=== PATIENT | male | born 2000 | race Caucasian/White ===

== ENCOUNTER 2021-07-26 19:10 | Inpatient (IN) | payer OTHER ==
[2021-07-26] MEDS ORDERED: NS 1,000 ML IV ONE ×2 (19:35→20:50)
[2021-07-26 20:02] LABS: BASO % 0.5 % (0.0-1.0); EOS # 0.2 10^3/uL (0.0-0.5); EOS % 2.4 % (0.0-3.0); HEMATOCRIT 42.9 % (42.0-52.0); HEMOGLOBIN 14.2 g/dl (13.5-17.5); LYMPH # 1.7 10^3/uL (1.5-5.0); LYMPH % 27.2 % (24.0-44.0); MEAN CORPUSCULAR HEMOGLOBIN 29.6 pg (27.0-33.0); MEAN CORPUSCULAR HGB CONC 33.1 g/dl (32.0-36.5); MEAN CORPUSCULAR VOLUME 89.6 fl (80.0-96.0); MONO # 0.7 10^3/uL (0.0-0.8); MONO % 10.2 % (2.0-8.0); NEUTROPHILS # 3.8 10^3/uL (1.5-8.5); NEUTROPHILS % 59.4 % (36.0-66.0); PLATELET COUNT, AUTOMATED 223 10^3/uL (150-450); RED BLOOD COUNT 4.79 10^6/uL (4.30-6.10); WHITE BLOOD COUNT 6.4 10^3/uL (4.0-10.0)
[2021-07-26 20:14] LABS: AMPHETAMINES LEVEL URINE NEGATIVE (NEGATIVE); BARBITURATES URINE NEGATIVE (NEGATIVE); BENZODIAZEPINES URINE NEGATIVE (NEGATIVE); CANNABINOIDS URINE NEGATIVE (NEGATIVE); COCAINE METABOLITE URINE NEGATIVE (NEGATIVE); METHADONE URINE NEGATIVE (NEGATIVE); OPIATES URINE NEGATIVE (NEGATIVE); PHENCYCLIDINE URINE NEGATIVE (NEGATIVE)
[2021-07-26 20:35] LABS: ALBUMIN 4.1 GM/DL (3.2-5.2); ALT/SGPT 31 U/L (12-78); BILIRUBIN,DIRECT 0.3 MG/DL (0.0-0.2); BILIRUBIN,TOTAL 0.5 MG/DL (0.2-1.0); BLOOD UREA NITROGEN 7 MG/DL (7-18); CALCIUM LEVEL 8.8 MG/DL (8.5-10.1); CARBON DIOXIDE LEVEL 27 MEQ/L (21-32); CHLORIDE LEVEL 108 MEQ/L (98-107); CREATININE FOR GFR 0.93 MG/DL (0.70-1.30); ETHYL ALCOHOL (ETHANOL) 0.004 % (0.000-0.010); GLUCOSE, FASTING 88 MG/DL (70-100); POTASSIUM SERUM 4.1 MEQ/L (3.5-5.1); SALICYLATE LEVEL < 1.7 MG/DL (5.0-30.0); SODIUM LEVEL 142 MEQ/L (136-145)
[2021-07-26 22:04] LABS: ACETAMINOPHEN LEVEL < 2.0 UG/ML (0.0-30.0)
[2021-07-26] MEDS ORDERED: HOME MED LIST COMPLETE! XX SCH (23:05)
[2021-07-27] MEDS ORDERED: traZODone 50 MG TAB PO PRN (03:30)
[2021-07-27] MEDS ORDERED: ACETAMINOPHEN TAB 650MG DOSE (2X325MG) PO PRN (03:30)
[2021-07-27] MEDS ORDERED: MOM 30ML SUSPENSION UDC PO PRN (03:30)
[2021-07-27] MEDS ORDERED: MAALOX 30 ML SUSP *UDC PO PRN (03:30)
[2021-07-27 04:37] LABS: RSV AMPLIFICATION NEGATIVE (NEGATIVE)
[2021-07-27 05:15] VITALS: BP 131/79
[2021-07-27] MEDS ORDERED: SERTRALINE HCL 50 MG TAB PO SCH (09:00)
[2021-07-27] MEDS: DULoxetine 20 MG CAP (CYMBALTA) PO SCH (10:50)
[2021-07-27 16:29] VITALS: BP 135/65
[2021-07-27 18:03] LABS: BLOOD UREA NITROGEN 11 MG/DL (7-18); CALCIUM LEVEL 9.1 MG/DL (8.5-10.1); CARBON DIOXIDE LEVEL 26 MEQ/L (21-32); CHLORIDE LEVEL 105 MEQ/L (98-107); CREATININE FOR GFR 0.89 MG/DL (0.70-1.30); GLUCOSE, FASTING 94 MG/DL (70-100); POTASSIUM SERUM 3.5 MEQ/L (3.5-5.1); SODIUM LEVEL 141 MEQ/L (136-145)
[2021-07-28 06:42] VITALS: BP 125/63
[2021-07-28] MEDS: DULoxetine 20 MG CAP (CYMBALTA) PO SCH (08:27)
[2021-07-28 16:16] VITALS: BP 123/57
[2021-07-29 06:45] VITALS: BP 133/74
[2021-07-29] MEDS: DULoxetine 20 MG CAP (CYMBALTA) PO SCH (08:20)
[2021-07-29 17:08] VITALS: BP 148/75
[2021-07-30 06:13] VITALS: BP 143/70
[2021-07-30] MEDS ORDERED: CYMB1CAP4 PO (08:17)
[2021-07-30] MEDS: DULoxetine 20 MG CAP (CYMBALTA) PO SCH (08:28)
== END 2021-07-30 11:47 | disposition home or self-care (01) | DRG 881 ==
LOC: M ED 19:10 → EDBD 19:10 → M ED INP 07-27 03:28 → M PSY 07-27 05:04
PROVIDERS: ADMIT Family Medicine; ATTEND Psychiatry & Neurology Psychiatry
DX: F32.A Depression, unspecified (principal); M62.82 Rhabdomyolysis; T39.312A Poisoning by propionic acid derivatives, intentional self-harm, initial encounter; L70.9 Acne, unspecified

== ENCOUNTER 2021-08-02 10:18 | Emergency (ER) | payer OTHER ==
[~2021-08-02] VITALS: Ht 182.9 cm; Wt 80.4 kg
[~2021-08-02 10:18] MED LIST: CYMB1CAP4 PO
[2021-08-02 10:19] VITALS: BP 138/89
== END 2021-08-02 12:21 | disposition left against medical advice (07) ==
LOC: M ED 10:18
DX: Z53.29 Procedure and treatment not carried out because of patient's decision for other reasons (principal)

== ENCOUNTER 2021-08-05 07:22 | Inpatient (IN) | payer OTHER ==
[~2021-08-05] VITALS: Ht 182.9 cm; Wt 78.0 kg
[2021-08-05 07:56] LABS: BASO % 0.3 % (0.0-1.0); EOS # 0.2 10^3/uL (0.0-0.5); EOS % 1.5 % (0.0-3.0); HEMATOCRIT 43.6 % (42.0-52.0); HEMOGLOBIN 14.7 g/dl (13.5-17.5); LYMPH # 1.5 10^3/uL (1.5-5.0); LYMPH % 12.3 % (24.0-44.0); MEAN CORPUSCULAR HEMOGLOBIN 29.3 pg (27.0-33.0); MEAN CORPUSCULAR HGB CONC 33.7 g/dl (32.0-36.5); MONO % 8.4 % (2.0-8.0); NEUTROPHILS # 9.4 10^3/uL (1.5-8.5); NEUTROPHILS % 77.2 % (36.0-66.0); PLATELET COUNT, AUTOMATED 232 10^3/uL (150-450); RED BLOOD COUNT 5.01 10^6/uL (4.30-6.10); WHITE BLOOD COUNT 12.1 10^3/uL (4.0-10.0)
[2021-08-05 08:38] LABS: ALBUMIN 4.3 GM/DL (3.2-5.2); ALT/SGPT 19 U/L (12-78); BILIRUBIN,DIRECT 0.2 MG/DL (0.0-0.2); BILIRUBIN,TOTAL 0.6 MG/DL (0.2-1.0); BLOOD UREA NITROGEN 11 MG/DL (7-18); CALCIUM LEVEL 8.8 MG/DL (8.5-10.1); CARBON DIOXIDE LEVEL 24 MEQ/L (21-32); CHLORIDE LEVEL 108 MEQ/L (98-107); ETHYL ALCOHOL (ETHANOL) < 0.003 % (0.000-0.010); GLUCOSE, FASTING 103 MG/DL (70-100); POTASSIUM SERUM 3.3 MEQ/L (3.5-5.1); SALICYLATE LEVEL < 1.7 MG/DL (5.0-30.0); SODIUM LEVEL 141 MEQ/L (136-145); TOTAL PROTEIN 7.3 GM/DL (6.4-8.2)
[2021-08-05] MEDS ORDERED: NS 1,000 ML IV ONE ×2 (08:55→09:20)
[2021-08-05 10:54] LABS: ACETAMINOPHEN LEVEL < 2.0 UG/ML (0.0-30.0)
[2021-08-05] MEDS ORDERED: POTASSIUM CHLORIDE 10MEQ SR TABLET PO ONE (11:35)
[2021-08-05 12:26] LABS: AMPHETAMINES LEVEL URINE NEGATIVE (NEGATIVE); BARBITURATES URINE NEGATIVE (NEGATIVE); BENZODIAZEPINES URINE NEGATIVE (NEGATIVE); CANNABINOIDS URINE NEGATIVE (NEGATIVE); COCAINE METABOLITE URINE NEGATIVE (NEGATIVE); METHADONE URINE NEGATIVE (NEGATIVE); OPIATES URINE NEGATIVE (NEGATIVE); PHENCYCLIDINE URINE NEGATIVE (NEGATIVE)
[2021-08-05 14:49] LABS: RSV AMPLIFICATION NEGATIVE (NEGATIVE)
[2021-08-05] MEDS ORDERED: MOM 30ML SUSPENSION UDC PO PRN (15:45)
[2021-08-05] MEDS ORDERED: traZODone 50 MG TAB PO PRN (15:45)
[2021-08-05] MEDS ORDERED: MAALOX 30 ML SUSP *UDC PO PRN (15:45)
[2021-08-05] MEDS ORDERED: ACETAMINOPHEN TAB 650MG DOSE (2X325MG) PO PRN (15:45)
[2021-08-05] MEDS ORDERED: DULO20CA27 PO (16:03)
[2021-08-05] MEDS ORDERED: HOME MED LIST COMPLETE! XX SCH (16:05)
[2021-08-05 18:05] VITALS: BP 137/76
[2021-08-05] MEDS: NICOTINE 21MG/24HR 1 EA TRANSDERMAL TD SCH (18:41)
[2021-08-06 06:32] VITALS: BP 114/56
[2021-08-06] MEDS: NICOTINE 21MG/24HR 1 EA TRANSDERMAL TD SCH (09:00)
[2021-08-06] MEDS ORDERED: DULoxetine 30MG CAPSULE (CYMBALTA) PO SCH (09:00)
[2021-08-06] MEDS ORDERED: MIRALAX *UNIT DOSE* 17GM PACKET PO PRN (09:10)
[2021-08-06] MEDS ORDERED: BACLOFEN 10 MG TAB PO PRN (09:10)
[2021-08-06] MEDS: GABAPENTIN 100 MG CAP PO SCH ×2 (09:21→21:36)
[2021-08-06] MEDS: buPROPion **XL** TABLET 150MG (WELLBUTRIN XL) PO SCH (11:42)
[2021-08-06 18:00] VITALS: BP 127/58
[2021-08-07 07:13] VITALS: BP 129/70
[2021-08-07] MEDS: buPROPion **XL** TABLET 150MG (WELLBUTRIN XL) PO SCH (08:24)
[2021-08-07] MEDS: GABAPENTIN 100 MG CAP PO SCH ×2 (08:24→21:17)
[2021-08-07 18:12] VITALS: BP 151/83
[2021-08-08 06:00] VITALS: BP 126/58
[2021-08-08] MEDS: buPROPion **XL** TABLET 150MG (WELLBUTRIN XL) PO SCH (09:03)
[2021-08-08] MEDS: GABAPENTIN 100 MG CAP PO SCH ×2 (09:03→20:49)
[2021-08-09 06:51] VITALS: BP 125/70
[2021-08-09] MEDS: buPROPion **XL** TABLET 150MG (WELLBUTRIN XL) PO SCH (08:45)
[2021-08-09] MEDS: GABAPENTIN 100 MG CAP PO SCH ×2 (08:45→21:12)
[2021-08-09 18:32] VITALS: BP 126/78
[2021-08-10 06:47] VITALS: BP 111/57
[2021-08-10] MEDS: GABAPENTIN 100 MG CAP PO SCH ×2 (09:43→21:46)
[2021-08-10] MEDS: buPROPion **XL** TABLET 150MG (WELLBUTRIN XL) PO SCH (09:43)
[2021-08-10 18:54] VITALS: BP 120/74
[2021-08-11 07:00] VITALS: BP 119/64
[2021-08-11] MEDS: buPROPion **XL** TABLET 150MG (WELLBUTRIN XL) PO SCH (08:48)
[2021-08-11] MEDS: GABAPENTIN 100 MG CAP PO SCH ×2 (08:48→21:12)
[2021-08-11 17:45] VITALS: BP 118/62
[2021-08-12 06:40] VITALS: BP 102/55
[2021-08-12] MEDS: GABAPENTIN 100 MG CAP PO SCH ×2 (09:52→21:49)
[2021-08-12] MEDS: buPROPion **XL** TABLET 150MG (WELLBUTRIN XL) PO SCH (09:52)
[2021-08-12] MEDS ORDERED: hydrOXYzine 50 MG TAB PO PRN (12:00)
[2021-08-12 18:39] VITALS: BP 117/56
[2021-08-13 06:58] VITALS: BP 118/57
[2021-08-13] MEDS: GABAPENTIN 100 MG CAP PO SCH ×2 (09:30→21:41)
[2021-08-13] MEDS: buPROPion **XL** TABLET 150MG (WELLBUTRIN XL) PO SCH (09:30)
[2021-08-14 06:00] VITALS: BP 117/70
[2021-08-14] MEDS: buPROPion **XL** TABLET 150MG (WELLBUTRIN XL) PO SCH (10:26)
[2021-08-14] MEDS: GABAPENTIN 100 MG CAP PO SCH ×2 (10:26→21:48)
[2021-08-14 17:17] VITALS: BP 142/77
[2021-08-15 06:43] VITALS: BP 123/56
[2021-08-15] MEDS: GABAPENTIN 100 MG CAP PO SCH ×2 (09:43→21:14)
[2021-08-15] MEDS: buPROPion **XL** TABLET 150MG (WELLBUTRIN XL) PO SCH (09:43)
[2021-08-15 17:30] VITALS: BP 148/65
[2021-08-16 06:00] VITALS: BP 136/74
[2021-08-16] MEDS: buPROPion **XL** TABLET 150MG (WELLBUTRIN XL) PO SCH (08:39)
[2021-08-16] MEDS: GABAPENTIN 100 MG CAP PO SCH (08:39)
[2021-08-16] MEDS ORDERED: BUPR150T12 PO (09:13)
[2021-08-16] MEDS ORDERED: GABA-1171 PO (09:13)
== END 2021-08-16 13:03 | disposition home or self-care (01) | DRG 881 ==
LOC: EDBD 07:22 → M ED 07:22 → M ED INP 15:42 → M PSY 18:03
PROVIDERS: ADMIT Student in an Organized Health Care Education/Training Program; ATTEND Psychiatry & Neurology Psychiatry
DX: F32.A Depression, unspecified (principal); F43.20 Adjustment disorder, unspecified; T39.312A Poisoning by propionic acid derivatives, intentional self-harm, initial encounter; Z91.51 Personal history of suicidal behavior; Z20.822 Contact with and (suspected) exposure to COVID-19; R21 Rash and other nonspecific skin eruption; M54.50 Low back pain, unspecified; K59.00 Constipation, unspecified; Z79.899 Other long term (current) drug therapy; F41.9 Anxiety disorder, unspecified

== ENCOUNTER 2021-08-21 01:11 | Inpatient (IN) | payer OTHER ==
[~2021-08-21] VITALS: Ht 185.4 cm; Wt 79.5 kg
[~2021-08-21 01:11] MED LIST changes: +BUPR150T12 PO; +DULO20CA27 PO; +GABA-1171 PO
[2021-08-21 01:58] LABS: HEMATOCRIT 45.1 % (42.0-52.0); HEMOGLOBIN 14.9 g/dl (13.5-17.5); MEAN CORPUSCULAR HEMOGLOBIN 29.4 pg (27.0-33.0); MEAN CORPUSCULAR VOLUME 89.1 fl (80.0-96.0); PLATELET COUNT, AUTOMATED 252 10^3/uL (150-450); RED BLOOD COUNT 5.06 10^6/uL (4.30-6.10); WHITE BLOOD COUNT 8.2 10^3/uL (4.0-10.0)
[2021-08-21 02:34] LABS: RSV AMPLIFICATION NEGATIVE (NEGATIVE)
[2021-08-21 02:36] LABS: ACETAMINOPHEN LEVEL < 2.0 UG/ML (10.0-30.0); ALBUMIN 4.3 GM/DL (3.2-5.2); ALT/SGPT 17 U/L (12-78); BILIRUBIN,DIRECT 0.1 MG/DL (0.0-0.2); BILIRUBIN,TOTAL 0.4 MG/DL (0.2-1.0); BLOOD UREA NITROGEN 10 MG/DL (7-18); CALCIUM LEVEL 9.2 MG/DL (8.5-10.1); CARBON DIOXIDE LEVEL 28 MEQ/L (21-32); CHLORIDE LEVEL 107 MEQ/L (98-107); CREATININE FOR GFR 1.06 MG/DL (0.70-1.30); ETHYL ALCOHOL (ETHANOL) < 0.003 % (0.000-0.010); GLUCOSE, FASTING 90 MG/DL (70-100); POTASSIUM SERUM 3.7 MEQ/L (3.5-5.1); SALICYLATE LEVEL < 1.7 MG/DL (5.0-30.0); SODIUM LEVEL 143 MEQ/L (136-145); TOTAL PROTEIN 7.4 GM/DL (6.4-8.2)
[2021-08-21 03:10] LABS: AMPHETAMINES LEVEL URINE NEGATIVE (NEGATIVE); BARBITURATES URINE NEGATIVE (NEGATIVE); BENZODIAZEPINES URINE NEGATIVE (NEGATIVE); CANNABINOIDS URINE NEGATIVE (NEGATIVE); COCAINE METABOLITE URINE NEGATIVE (NEGATIVE); METHADONE URINE NEGATIVE (NEGATIVE); OPIATES URINE NEGATIVE (NEGATIVE); PHENCYCLIDINE URINE NEGATIVE (NEGATIVE)
[2021-08-21] MEDS ORDERED: BUPR150T12 PO (06:27)
[2021-08-21] MEDS ORDERED: GABA-1171 PO (06:27)
[2021-08-21] MEDS ORDERED: med rec comment (06:28)
[2021-08-21] MEDS ORDERED: HOME MED LIST COMPLETE! XX SCH (06:30)
[2021-08-21] MEDS ORDERED: MAALOX 30 ML SUSP *UDC PO PRN (20:30)
[2021-08-21] MEDS ORDERED: traZODone 50 MG TAB PO PRN (20:30)
[2021-08-21] MEDS ORDERED: MOM 30ML SUSPENSION UDC PO PRN (20:30)
[2021-08-21] MEDS ORDERED: ACETAMINOPHEN TAB 650MG DOSE (2X325MG) PO PRN (20:30)
[2021-08-21 22:58] VITALS: BP 123/60
[2021-08-22 06:36] VITALS: BP 117/56
[2021-08-22] MEDS: buPROPion **XL** TABLET 150MG (WELLBUTRIN XL) PO SCH (08:42)
[2021-08-22] MEDS: GABAPENTIN 100 MG CAP PO SCH ×2 (08:46→21:00)
[2021-08-22 11:50] VITALS: BP 117/56
[2021-08-22 18:14] VITALS: BP 112/62
[2021-08-23 06:50] VITALS: BP 109/71
[2021-08-23] MEDS: buPROPion **XL** TABLET 150MG (WELLBUTRIN XL) PO SCH (08:53)
[2021-08-23] MEDS: GABAPENTIN 100 MG CAP PO SCH (08:53)
[2021-08-23 18:03] VITALS: BP 106/58
[2021-08-24 06:47] VITALS: BP 100/52
[2021-08-24] MEDS: buPROPion **XL** TABLET 150MG (WELLBUTRIN XL) PO SCH (08:41)
[2021-08-24 18:00] VITALS: BP 127/72
[2021-08-25 06:32] VITALS: BP 134/63
[2021-08-25] MEDS: buPROPion **XL** TABLET 150MG (WELLBUTRIN XL) PO SCH (08:01)
[2021-08-25 18:00] VITALS: BP 136/70
[2021-08-26 06:49] VITALS: BP 116/56
[2021-08-26] MEDS: buPROPion **XL** TABLET 150MG (WELLBUTRIN XL) PO SCH (08:00)
[2021-08-26 18:29] VITALS: BP 130/82
[2021-08-27 06:14] VITALS: BP 117/57
[2021-08-27] MEDS: buPROPion **XL** TABLET 150MG (WELLBUTRIN XL) PO SCH (08:10)
[2021-08-27] MEDS ORDERED: BUPR150T12 PO (11:35)
== END 2021-08-27 11:46 | disposition home or self-care (01) | DRG 881 ==
LOC: M ED 01:11 → M ED INP 20:29 → M PSY 22:51
PROVIDERS: ADMIT Psychiatry & Neurology Psychiatry; ATTEND Psychiatry & Neurology Psychiatry
DX: F32.A Depression, unspecified (principal); Z81.8 Family history of other mental and behavioral disorders; Z91.51 Personal history of suicidal behavior; Z79.899 Other long term (current) drug therapy

== ENCOUNTER 2021-09-18 18:04 | Emergency (ER) | payer OTHER ==
[~2021-09-18] VITALS: Ht 182.9 cm; Wt 71.8 kg
[~2021-09-18 18:04] MED LIST changes: +med rec comment
[2021-09-18] MEDS ORDERED: VIST50CA PO (20:31)
[2021-09-18 21:00] VITALS: BP 172/66
[2021-09-19] MEDS ORDERED: BUPR150T12 PO (20:50)
[2021-09-19] MEDS ORDERED: HYDR50CA2 PO (20:50)
== END 2021-09-18 21:12 | disposition home or self-care (01) ==
LOC: M ED 18:04
DX: F41.0 Panic disorder [episodic paroxysmal anxiety] (principal); F41.1 Generalized anxiety disorder; F32.A Depression, unspecified; Z79.899 Other long term (current) drug therapy

== ENCOUNTER 2021-09-19 17:29 | Emergency (ER) | payer OTHER ==
[~2021-09-19] VITALS: Ht 182.9 cm; Wt 79.5 kg
[~2021-09-19 17:29] MED LIST changes: +VIST50CA PO
[2021-09-19] MEDS ORDERED: MIDAZOLAM 5MG/ML 1ML VIAL (J2250 PER 1MG) IM ONE (17:55)
[2021-09-19] MEDS ORDERED: OLANZapine ORAL DISINTEGRATING TAB 5MG PO ONE (17:55)
[2021-09-19 19:37] LABS: AMPHETAMINES LEVEL URINE NEGATIVE (NEGATIVE); BARBITURATES URINE NEGATIVE (NEGATIVE); BENZODIAZEPINES URINE NEGATIVE (NEGATIVE); CANNABINOIDS URINE NEGATIVE (NEGATIVE); COCAINE METABOLITE URINE NEGATIVE (NEGATIVE); METHADONE URINE NEGATIVE (NEGATIVE); OPIATES URINE NEGATIVE (NEGATIVE); PHENCYCLIDINE URINE NEGATIVE (NEGATIVE)
[2021-09-19 19:50] LABS: ACETAMINOPHEN LEVEL < 2.0 UG/ML (10.0-30.0); ALBUMIN 4.6 GM/DL (3.2-5.2); ALT/SGPT 17 U/L (12-78); BILIRUBIN,DIRECT 0.2 MG/DL (0.0-0.2); BILIRUBIN,TOTAL 0.7 MG/DL (0.2-1.0); BLOOD UREA NITROGEN 5 MG/DL (7-18); CALCIUM LEVEL 9.6 MG/DL (8.5-10.1); CARBON DIOXIDE LEVEL 23 MEQ/L (21-32); CHLORIDE LEVEL 107 MEQ/L (98-107); CREATININE FOR GFR 0.93 MG/DL (0.70-1.30); ETHYL ALCOHOL (ETHANOL) < 0.003 % (0.000-0.010); GLUCOSE, FASTING 91 MG/DL (70-100); POTASSIUM SERUM 3.5 MEQ/L (3.5-5.1); SALICYLATE LEVEL < 1.7 MG/DL (5.0-30.0); SODIUM LEVEL 137 MEQ/L (136-145); TOTAL PROTEIN 7.5 GM/DL (6.4-8.2)
[2021-09-19 20:05] LABS: RSV AMPLIFICATION NEGATIVE (NEGATIVE)
[2021-09-19 20:43] LABS: HEMATOCRIT 44.6 % (42.0-52.0); MEAN CORPUSCULAR HEMOGLOBIN 30.1 pg (27.0-33.0); MEAN CORPUSCULAR HGB CONC 33.6 g/dl (32.0-36.5); MEAN CORPUSCULAR VOLUME 89.4 fl (80.0-96.0); PLATELET COUNT, AUTOMATED 272 10^3/uL (150-450); RED BLOOD COUNT 4.99 10^6/uL (4.30-6.10); WHITE BLOOD COUNT 10.7 10^3/uL (4.0-10.0)
[2021-09-19] MEDS ORDERED: BUPR150T12 PO (20:50)
[2021-09-19] MEDS ORDERED: HYDR50CA2 PO (20:50)
[2021-09-19] MEDS ORDERED: HOME MED LIST COMPLETE! XX SCH (20:55)
[2021-09-19 22:00] VITALS: BP 126/72
== END 2021-09-19 22:38 | disposition home or self-care (01) ==
LOC: M ED 17:29
DX: F41.1 Generalized anxiety disorder (principal); R06.4 Hyperventilation; Z79.899 Other long term (current) drug therapy; F17.200 Nicotine dependence, unspecified, uncomplicated
CPT/HCPCS: 36415; 80048; 80076; 80143; 80307; 82077; 84443; 85027; 87631; 96372; 99285; J2250